=== PATIENT | female | born 1950 | race Caucasian/White ===

== ENCOUNTER 2016-08-05 14:54 | Emergency (ER) | payer OTHER ==
[2016-08-05 14:55] VITALS: BMI 25.9
[2016-08-05 15:27] VITALS: RESP 20
--- NOTE | 2016-08-05 16:10 | C.PDOC ---
History Of Present Illness A 66 year old female presents to the emergency room for the evaluation of right elbow pain for 2 weeks. Patient notes that the pain is localized and worst with elbow movement. Patient admits, sustained some injury 2 weeks ago. Patient notes was seen by PMD and ref. to F/u with specialist and the medications given for pain have not resulted in any improvement. Patient denies any obvious deformity to Right arm, swelling, numbness, weakness, sensory or vascular deficits to Right arm, denies CP, SOB, dyspnea, diaphoresis. Ambulate to Ed for evaluation, not in any apparent distress. Time Seen by Provider: 08/05/16 15:35 Chief Complaint (Nursing): Upper Extremity Problem/Injury History Per: Patient History/Exam Limitations: no limitations Onset/Duration Of Symptoms: Other (2 weeks) Current Symptoms Are (Timing): Still Present Quality: "Pain" Severity: Mild Exacerbating Factor(s): Movement Recent travel outside of the [place]: No Past Medical History Reviewed: Historical Data, Nursing Documentation, Vital Signs Vital Signs: Last Vital Signs Temp 97.9 F 08/05/16 15:26 Pulse 78 08/05/16 15:26 Resp 20 08/05/16 15:26 BP 135/89 08/05/16 15:26 Pulse Ox 98 08/05/16 17:08 - Medical History PMH: Arthritis, Asthma, Diabetes, HTN, Hypercholesterolemia, Osteoporosis Denies: Chronic Kidney Disease Family History: States: Unknown Family Hx - Social History Hx Tobacco Use: Yes Hx Alcohol Use: No Hx Substance Use: No - Immunization History Hx Tetanus Toxoid Vaccination: No Hx Influenza Vaccination: No Hx Pneumococcal Vaccination: No Review Of Systems Except As Marked, All Systems Reviewed And Found Negative. Constitutional: Negative for: Fever, Sweats Gastrointestinal: Negative for: Nausea, Vomiting, Diarrhea Musculoskeletal: Positive for: Other (Right elbow pain) Neurological: Negative for: Weakness, Numbness Physical Exam - Physical Exam Appears: Well, Non-toxic Skin: Warm, Dry, No Rash, No Ecchymosis, Other (Wart attached to right elbow) Extremity: Normal ROM, Tenderness (Diffuse right elbow tenderness with a wart attached. No obvious deformity or swelling.), No Deformity, No Swelling Neurological/Psych: Oriented x3, Normal Speech, Normal Cognition, Normal Motor, Normal Sensation, Normal Reflexes ED Course And Treatment O2 Sat by Pulse Oximetry: 98 Pulse Ox Interpretation: Normal - Other Rad Right elbow X-Ray: Interpreted by Me Interpretation: (+)proximal radial head fx Progress Note: On re-eavl, pt is afebrile, hemodynamicaly stable. non-toxic. Right UE: exam c/w elbow arthralgia, mild discomfort on flexion/extension. No neurovascular deficits. Xray (+) proximal radial fx. SPlint applied, sling. Analgesics. pt ref. to f/u with ortho on 2-3 days for re-eval. Orthopedic Time Performed: 16:20 Time Out: Side verified, Site verified, Patient ID confirmed Procedure: Splint Type: Long Other:: arm Location: Right Consent obtained: Verbal Performed by: Mid-level Provider Diagnosis: Fracture Type: Closed Location: Left, Proximal Bone: Radius Disposition Counseled Patient/Family Regarding: Studies Performed, Diagnosis, Need For Followup, Rx Given - Disposition Referrals: Jose Dejesus III, MD [Staff Provider] - [facility] [Outside] Disposition: HOME/ ROUTINE Disposition Time: 16:20 Condition: STABLE Additional Instructions: Splint Sling take pain medication as prescribed Follow up with Orthopedist in 2-3 days for re-evaluation. Return to ED if any worsening or new changes. Prescriptions: traMADol [Ultram] 50 mg PO TID #7 tab Instructions: Elbow Fracture in Adults (ED) Print Language: MALDIVIAN - Clinical Impression Clinical Impression: Elbow fracture, right - Scribe Statement The provider has reviewed the documentation as recorded by the Scribdax Brown All medical record entries made by the Scribe were at my direction and personally dictated by me. I have reviewed the chart and agree that the record accurately reflects my personal performance of the history, physical exam, medical decision making, and the department course for this patient. I have also personally directed, reviewed, and agree with the discharge instructions and disposition.
[2016-08-05 17:50] VITALS: BP 142/85; PULSE 86; TEMP 98.7; O2SAT 96
--- NOTE | 2016-08-06 11:18 | RAD ---
PROCEDURE: Radiographs of the right elbow. HISTORY: pain, injury COMPARISON: No prior. FINDINGS: BONES: A radial neck complete fracture without gross displacement is noted. Some minimal impaction on the lateral view is questioned. Tiny chip 2 mm fracture for is seen distal to the fracture line volar aspect Coronoid process osseous hypertrophy JOINTS: osteoarthritis. SOFT TISSUES: Soft tissue swelling JOINT EFFUSION: Yes OTHER FINDINGS: None. IMPRESSION: Radial head -neck fracture. . The fracture may be subacute. Correlate clinically. Minimal impaction possible. No greater displacement suggested. Coronoid spurring -osteoarthrosis Elbow joint effusion
== END 2016-08-05 17:50 | disposition home or self-care (01) ==
LOC: C.ER 14:54
DX: S52.121A Displaced fracture of head of right radius, initial encounter for closed fracture (principal); X58.XXXA Exposure to other specified factors, initial encounter; Y93.9 Activity, unspecified; Y92.9 Unspecified place or not applicable

== ENCOUNTER 2016-11-30 20:56 | Observation (INO) | payer OTHER ==
--- NOTE | 2016-11-30 20:58 | C.PDOC ---
History Of Present Illness Patient complaining of chest pain which started on Friday. Speaking in complete sentences. Dull aching chest discomfort, non radiating. No fever, chills, nausea or vomiting. Time Seen by Provider: 11/30/16 20:57 History Per: Patient History/Exam Limitations: no limitations Onset/Duration Of Symptoms: Days (3) Current Symptoms Are (Timing): Still Present Severity: Moderate Pain Scale Rating Of: 4 Quality: Dull Associated Symptoms: denies: Nausea, Dyspnea, Diaphoresis Modifying Factors: None Exacerbating Factors: None Alleviating Factors: None Recent travel outside of the [place]: No Additional History Per: Patient Past Medical History Reviewed: Historical Data, Nursing Documentation, Vital Signs Vital Signs: Last Vital Signs Temp 98.1 F 11/30/16 21:11 Pulse 78 11/30/16 21:47 Resp 16 11/30/16 21:47 BP 117/70 11/30/16 21:47 Pulse Ox 100 11/30/16 21:47 - Medical History PMH: Arthritis, Asthma, Diabetes, HTN, Hypercholesterolemia, Osteoporosis Denies: Chronic Kidney Disease Family History: States: No Known Family Hx - Social History Hx Tobacco Use: Yes Hx Alcohol Use: No Hx Substance Use: No - Immunization History Hx Tetanus Toxoid Vaccination: No Hx Influenza Vaccination: No Hx Pneumococcal Vaccination: No Review Of Systems Constitutional: Negative for: Fever, Chills Eyes: Negative for: Redness ENT: Negative for: Throat Pain Cardiovascular: Positive for: Chest Pain Respiratory: Negative for: Shortness of Breath Gastrointestinal: Negative for: Nausea, Vomiting, Abdominal Pain Genitourinary: Negative for: Dysuria Musculoskeletal: Negative for: Back Pain Skin: Negative for: Rash, Lesions Neurological: Negative for: Weakness Psych: Negative for: Anxiety Physical Exam - Physical Exam Appears: Non-toxic Skin: Warm, Dry Head: Normacephalic Eye(s): bilateral: Normal Inspection Oral Mucosa: Moist Neck: Supple Chest: Symmetrical Cardiovascular: Rhythm Regular Respiratory: No Rales, No Rhonchi, No Wheezing Gastrointestinal/Abdominal: Soft, No Tenderness, No Distention Back: No CVA Tenderness Extremity: No Tenderness Extremity: Bilateral: Atraumatic, Normal Color And Temperature Pulses: Left Dorsalis Pedis: Normal, Right Dorsalis Pedis: Normal Neurological/Psych: Oriented x3, Normal Speech, Normal Cognition Gait: Steady ED Course And Treatment - Laboratory Results Result Diagrams: 11/30/16 21:28 11/30/16 21:28 ECG: Interpreted By Me, Viewed By Me ECG Rhythm: Sinus Rhythm (80), Nonspecific Changes (unchanged from 06/20/14) O2 Sat by Pulse Oximetry: 99 Pulse Ox Interpretation: Normal - Radiology CXR: Interpreted by Me, Viewed By Me CXR Interpretation: No: Infiltrates, Fracture, Pnemothorax Progress Note: cardiac work up, asa, Disposition Discussed With Dr.: Norman David Comment: accepted the pt on his service and took over the care at 10:38PM Doctor Will See Patient In The: Hospital Counseled Patient/Family Regarding: Studies Performed, Diagnosis - Disposition Disposition: HOSPITALIZED Disposition Time: 20:58 Condition: FAIR - POA Present On Arrival: Poor Glycemic Control - Clinical Impression Clinical Impression: Chest pain Decision To Admit - Pt Status Changed To: Hospital Disposition Of: Inpatient - Admit Certification Admit to Inpatient:: After my assessment, the patient will require hospitalization for at least two midnights. This is because of the severity of symptoms shown, intensity of services needed, and/or the medical risk in this patient being treated as an outpatient. - InPatient: Physician Admission Certification: I certify that this patient requires 2 or more midnights of care for the following reason:: After my assessment, the patient will require hospitalization for at least two midnights. This is because of the severity of symptoms shown, intensity of services needed, and/or the medical risk in this patient being treated as an outpatient. - . Bed Request Type: Telemetry Admitting Physician: Norman David Patient Diagnosis: Chest pain
[2016-11-30 21:00] VITALS: BMI 26.7
[2016-11-30] MEDS ORDERED: Aspirin 325 mg EC Tablets PO STA (21:00)
[2016-11-30 21:32] LABS: BASO # 0.1 K/uL (0.0-0.2); BASO % 1.3 % (0.0-2.0); EOS # 0.3 K/uL (0.0-0.7); EOS % 3.2 % (0.0-4.0); HEMATOCRIT 37.6 % (34.0-47.0); LYMPH # 3.3 K/uL (1.0-4.3); LYMPH % 40.9 % (20.0-40.0); MEAN CORPUSCULAR HEMOGLOBIN 32.4 pg (27.0-31.0); MEAN CORPUSCULAR HGB CONC 34.5 g/dL (33.0-37.0); MEAN PLATELET VOLUME 8.5 fL (7.2-11.7); MONO # 0.9 K/uL (0.0-0.8); MONO % 11.5 % (0.0-10.0); NRBC % 0.1 % (0.0-2.0); RED CELL DISTRIBUTION WIDTH 14.2 % (11.5-14.5); WHITE BLOOD COUNT 8.1 K/uL (4.8-10.8)
[2016-11-30 21:40] LABS: RBC URINE 1 /hpf (0-3); URINE BILIRUBIN NEGATIVE (NEGATIVE); URINE BLOOD 1+ (NEGATIVE); URINE COLOR Straw (YELLOW); URINE GLUCOSE (UA) NORMAL (Normal); URINE KETONE NEGATIVE (NEGATIVE); URINE LEUKOCYTE ESTERASE 1+ Leu/uL (Negative); URINE PROTEIN NEGATIVE (NEGATIVE); URINE UROBILINOGEN NORMAL mg/dL (0.2-1.0); WBC URINE 4 /hpf (0-5)
[2016-11-30 21:40] LABS: CHLORIDE 101 mmol/L (98-107)
[2016-11-30 21:41] LABS: POTASSIUM 3.6 mmol/L (3.6-5.2); SODIUM 140 mmol/L (132-148)
[2016-11-30 21:43] LABS: CARBON DIOXIDE 24 mmol/L (22-30); GFR AFRICAN-AMERICAN > 60
[2016-11-30 21:44] LABS: ALKALINE PHOSPHATASE 75 U/L (38-126); ALT/SGPT 41 U/L (9-52); AST/SGOT 31 U/L (14-36); BILIRUBIN,TOTAL 0.4 mg/dL (0.2-1.3); BLOOD UREA NITROGEN 17 mg/dL (7-17); CALCIUM 9.3 mg/dl (8.6-10.4); GLUCOSE,RANDOM 173 mg/dL (65-105); TOTAL PROTEIN 7.2 g/dL (6.3-8.3)
[2016-11-30] MEDS ORDERED: Aspirin 325 mg EC Tablets PO ONE (21:51)
[2016-12-01] MEDS ORDERED: Nitroglycerin 2% Ointment Foilpak UD TOP ONE (00:09)
[2016-12-01] MEDS: Nitroglycerin 2% Ointment Foilpak UD TOP SCH ×4 (00:09→17:59)
[2016-12-01] MEDS ORDERED: Oxycodone/Acetaminophen 5/325 mg Tab PO ONE (04:07)
[2016-12-01] MEDS: (Novolin R) Insulin Human Regular 100 units/ml vial SC SCH ×4 (07:52→21:36)
[2016-12-01] MEDS: Aspirin 325 mg EC Tablets PO SCH (09:40)
[2016-12-01] MEDS: Enoxaparin 30 mg Syringe SC SCH ×2 (09:41→21:36)
--- NOTE | 2016-12-01 12:57 | RAD ---
PROCEDURE: CHEST RADIOGRAPH, 1 VIEW. Technique: Portable study performed @ 21:05. HISTORY: chest pain COMPARISON: 06/20/2014 FINDINGS: LUNGS: Clear. PLEURA: No pneumothorax or pleural fluid seen. CARDIOVASCULAR: No radiographic findings to suggest acute or significant cardiovascular disease. OSSEOUS STRUCTURES: No significant abnormalities. VISUALIZED UPPER ABDOMEN: Normal. OTHER FINDINGS: None. IMPRESSION: No active disease. No acute/significant interval changes.
--- NOTE | 2016-12-01 14:24 | CP.PCM.HP ---
History of Present Illness - History of Present Illness History of Present Illness: COMPREHENSIVE HISTORY & PHYSICAL EXAM HPI ADMITTED FROM ER WITH 3 DAYS OF INTERMITTENT CP, NON RADIATION ,NOT A/W N/ VOMITING . FIRST EPISODE OF CP EKG NO ACUTE CHANGES PAST HIST. HTN AND T2DM PERSONAL HIST: Smoking. N Alcohol. N Allergy N Travel_- . FAMILY HIST : ROS : Constitutional: Negative for weight change, chills, night sweats, fatigue and usage of assist device. Eyes: Negative for redness, swelling, itching, discharge, vision changes, blurry vision, double vision, glaucoma, cataracts, Ears: Negative for hearing loss, ringing, , tinnitus, vertigo Nose: Negative for rhinorrhea, stuffiness, sniffing, itching, postnasal drip, discoloration, nasal congestion and epistaxis. Throat: Negative for throat clearing, sore throat, hoarseness, difficulty swallowing and difficulty speaking. Respiratory: Negative for cough, , sputum production, chest tightness, wheezing, pleuritic chest pain ,daytime somnolence, chronic cough, hemoptysis, snoring at night, Cardiovascular: POS for chest pain, palpitations, orthopnea NO , PND, Edema of legs, leg cramps, angina, claudication, , irregular heartbeat, Neurology: Negative for irritability, muscle weakness, numbness and tingling, seizures, tremors, migraines, slurred speech, syncope, memory loss, mood changes , recurrent headaches Gastrointestinal: Negative for difficulty swallowing, diarrhea, constipation, black stools, rectal bleeding, nausea, flatulence, reflux, poor appetite, changes in bowel habits, abdominal pain Genitourinary: Negative for frequent urination, hematuria, discharge, incontinence, urinary retention, frequent UTI, Psychiatric: Negative for depression, anxiety/panic, suicidal tendencies, Musculoskeletal: Negative for swollen joints, back pain, , neck pain, morning stiffness of joints, . Skin: Negative for rash, ulcers, itching, dry skin and pigmented lesions. P/E: Constitutional: Appears stated age and in no apparent distress. Head: Normocephalic. Ears: External ear canals patent without inflammation. Tympanic membranes intact with normal light reflex and landmark. Eyes: Pupils are central, bilaterally equal, symmetrical and reacts to light with normal movements and no icterus or pallor. Nose: External nares are patent. Mucosa is pink Mouth-Throat: Good general appearance and condition. No post-pharyngeal/oropharyngeal erythema and tonsillar hypertrophy. Good dental hygiene. Neck-Lymphatic: Neck is supple with normal ROM, no thyromegaly, lymph nodes or masses. JVD is normal with no carotid bruit. Lungs: Clear to percussion and auscultation with bilateral normal air entry. Cardiovascular: S1 and S2 are normal with no murmurs, gallops and rub. GI Exam: No hepatomegaly. Abdomen is soft and non-tender. No Organomegaly , masses or hernias are evident and bowel sounds are normal and active. Neurology: Higher function and all cranial nerves intact, with no gross motor or sensory deficit. Superficial and deep reflexes are normal with downwards planters. No cerebellar deficit with normal gait. Musculoskeletal: No tender spots with normal curvature of the spine with no swelling or restricted ROM of the small and large joints. Extremities: Homans sign absent. Intact pulses with no pitting edema, calf tenderness or skin color changes. Skin: No rash, eruptions or abnormal skin pigmentation LAB/RADIOLOGY: ASSESMENT : UNSTABLE ANGINA T2DM HTN PLAN: W/U FOR CAD IN THIS DM PT Present on Admission - Present on Admission Any Indicators Present on Admission: No Past Patient History - Infectious Disease Hx of Infectious Diseases: None - Past Medical History & Family History Past Medical History?: Yes - Past Social History Smoking Status: Never Smoked - CARDIAC Hx Cardiac Disorders: Yes Hx Angina: No Hx Circulatory Problems: Yes Hx Hypercholesterolemia: No Hx Hypertension: Yes - PULMONARY Hx Respiratory Disorders: Yes Hx Asthma: Yes Hx Bronchitis: Yes Hx Chronic Obstructive Pulmonary Disease (COPD): Yes Hx Pneumonia: Yes - NEUROLOGICAL Hx Neurological Disorder: No - HEENT Hx HEENT Problems: Yes Hx Cataracts: Yes Other/Comment: Cornea - RENAL Hx Chronic Kidney Disease: No - ENDOCRINE/METABOLIC Hx Endocrine Disorders: Yes Hx Diabetes Mellitus Type 2: Yes - HEMATOLOGICAL/ONCOLOGICAL Hx Blood Disorders: No - INTEGUMENTARY Hx Dermatological Problems: No - MUSCULOSKELETAL/RHEUMATOLOGICAL Hx Musculoskeletal Disorders: Yes Hx Arthritis: Yes Hx Back Pain: Yes Hx Falls: Yes Hx Fractures: Yes Hx Herniated Disk: Yes Hx Osteoporosis: Yes - GASTROINTESTINAL Hx Gastrointestinal Disorders: No - GENITOURINARY/GYNECOLOGICAL Hx Genitourinary Disorders: No - PSYCHIATRIC Hx Psychophysiologic Disorder: No Hx Substance Use: No - SURGICAL HISTORY Hx Surgeries: Yes Hx Cataract Extraction: Yes Hx Section: Yes Hx Eye Surgery: Yes - ANESTHESIA Hx Anesthesia: Yes Hx Anesthesia Reactions: No Meds Allergies/Adverse Reactions: Allergies Allergy/AdvReac Type Severity Reaction Status Date / Time No Known Allergies Allergy Verified 01/05/16 13:48 Results - Vital Signs Recent Vital Signs: Last Vital Signs Temp 98 F 12/01/16 07:05 Pulse 73 12/01/16 08:00 Resp 18 12/01/16 07:05 BP 115/72 12/01/16 07:05 Pulse Ox 100 12/01/16 07:05 - Labs Result Diagrams: 11/30/16 21:28 11/30/16 21:28 Labs: Laboratory Results - last 24 hr 12/01/16 12/01/16 12/01/16 06:01 06:23 11:30 POC Glucose (mg/dL) 140 H 119 H Total Creatine Kinase 64 CK-MB (Mass) 0.46 Troponin I, Quant < 0.0120
[2016-12-01 15:49] VITALS: O2SAT 99
[2016-12-02] MEDS: (Novolin R) Insulin Human Regular 100 units/ml vial SC SCH ×2 (07:21→13:52)
[2016-12-02] MEDS: Aspirin 325 mg EC Tablets PO SCH (09:42)
[2016-12-02] MEDS ORDERED: Enoxaparin 30 mg Syringe SC SCH (10:00)
[2016-12-02] MEDS: Nitroglycerin 2% Ointment Foilpak UD TOP SCH (13:52)
--- NOTE | 2016-12-02 14:00 | CP.PCM.DIS ---
Provider - Provider Date of Admission: 11/30/16 22:39 Attending physician: Norman David MD Time Spent in preparation of Discharge (in minutes): 30 Hospital Course - Lab Results Lab Results: Most Recent Lab Values WBC 8.1 K/uL (4.8-10.8) 11/30/16 21: RBC 4.00 Mil/uL (3.80-5.20) 11/30/16 21: Hgb 13.0 g/dL (11.0-16.0) 11/30/16 21: Hct 37.6 % (34.0-47.0) 11/30/16 21: MCV 94.0 fL (81.0-99.0) 11/30/16 21: MCH 32.4 pg (27.0-31.0) H 11/30/16 21: MCHC 34.5 g/dL (33.0-37.0) 11/30/16 21: RDW 14.2 % (11.5-14.5) 11/30/16 21: Plt Count 264 K/uL (130-400) 11/30/16 21:28 MPV 8.5 fL (7.2-11.7) 11/30/16 21: Neut % (Auto) 43.1 % (50.0-75.0) L 11/30/16 21: Lymph % (Auto) 40.9 % (20.0-40.0) H 11/30/16 21: [place] % (Auto) 11.5 % (0.0-10.0) H 11/30/16 21:28 Eos % (Auto) 3.2 % (0.0-4.0) 11/30/16 21: Baso % (Auto) 1.3 % (0.0-2.0) 11/30/16 21: Neut # 3.5 K/uL (1.8-7.0) 11/30/16 21: Lymph # 3.3 K/uL (1.0-4.3) 11/30/16 21:28 [place] # 0.9 K/uL (0.0-0.8) H 11/30/16 21:28 Eos # 0.3 K/uL (0.0-0.7) 11/30/16 21:28 Baso # 0.1 K/uL (0.0-0.2) 11/30/16 21:28 PT 11.3 SECONDS (9.7-12.2) 11/30/16 21:28 INR 1.0 11/30/16 21:28 APTT 38 SECONDS (21-34) H 11/30/16 21:28 Sodium 140 mmol/L (132-148) 11/30/16 21:28 Potassium 3.6 mmol/L (3.6-5.2) 11/30/16 21:28 Chloride 101 mmol/L (98-107) 11/30/16 21:28 Carbon Dioxide 24 mmol/L (22-30) 11/30/16 21:28 Anion Gap 18 (10-20) 11/30/16 21:28 BUN 17 mg/dL (7-17) 11/30/16 21:28 Creatinine 0.8 MG/DL (0.7-1.2) 11/30/16 21:28 Est GFR ( Amer) > 60 11/30/16 21:28 Est GFR (Non-Af Amer) > 60 11/30/16 21:28 POC Glucose (mg/dL) 75 mg/dL (65-110) 12/02/16 11:21 Random Glucose 173 mg/dL (65-105) H 11/30/16 21:28 Calcium 9.3 mg/dl (8.6-10.4) 11/30/16 21:28 Total Bilirubin 0.4 mg/dL (0.2-1.3) 11/30/16 21:28 AST 31 U/L (14-36) 11/30/16 21:28 ALT 41 U/L (9-52) 11/30/16 21:28 Alkaline Phosphatase 75 U/L (38-126) 11/30/16 21:28 Total Creatine Kinase 64 U/L (30-135) 12/01/16 06:23 CK-MB (Mass) 0.46 ng/mL (0.0-3.38) 12/01/16 06:23 Troponin I < 0.0120 ng/mL (0.00-0.120) 11/30/16 21:28 Troponin I, Quant < 0.0120 ng/mL (0.00-0.120) 12/01/16 06:23 NT-Pro-B Natriuret Pep 26.8 pg/mL (0-900) 11/30/16 21:28 Total Protein 7.2 g/dL (6.3-8.3) 11/30/16 21: Albumin 3.7 g/dL (3.5-5.0) 11/30/16 21: Globulin 3.5 gm/dL (2.2-3.9) 11/30/16 21: Albumin/Globulin Ratio 1.0 (1.0-2.1) 11/30/16 21: Urine Color Straw (YELLOW) 11/30/16 21: Urine Clarity Clear (Clear) 11/30/16 21: Urine pH 6.0 (5.0-8.0) 11/30/16 21:30 Ur Specific [place] 1.011 (1.003-1.030) 11/30/16 21:30 Urine Protein Negative mg/dL (NEGATIVE) 11/30/16 21:30 Urine Glucose (UA) Normal mg/dL (Normal) 11/30/16 21:30 Urine Ketones Negative mg/dL (NEGATIVE) 11/30/16 21:30 Urine Blood 1+ (NEGATIVE) H 11/30/16 21:30 Urine Nitrate Negative (NEGATIVE) 11/30/16 21:30 Urine Bilirubin Negative (NEGATIVE) 11/30/16 21:30 Urine Urobilinogen Normal mg/dL (0.2-1.0) 11/30/16 21:30 Ur Leukocyte Esterase 1+ Dorothea/uL (Negative) H 11/30/16 21:30 Urine WBC (Auto) 4 /hpf (0-5) 11/30/16 21:30 Urine RBC (Auto) 1 /hpf (0-3) 11/30/16 21:30 Ur Squamous Epith Cells 1 /hpf (0-5) 11/30/16 21:30 - Hospital Course Hospital Course: ADMITTED FROM ER WITH 3 DAYS OF INTERMITTENT CP, NON RADIATION ,NOT A/W N/ VOMITING . FIRST EPISODE OF CP EKG NO ACUTE CHANGES PAST HIST. HTN AND T2DM SERIAL TNI WERE NEG NO ACUTE CHANGES IN EKG NO FURTHER CP WILL OBTAIN POT PT CARDIAC W/U Discharge Plan - Follow Up Plan Condition: FAIR Disposition: HOME/ ROUTINE
[2016-12-02 15:51] VITALS: BP 136/86; PULSE 88; RESP 20; TEMP 98.2
--- NOTE | 2016-12-02 16:09 | CP.PCM.PN ---
Subjective - Date & Time of Evaluation Date of Evaluation: 12/02/16 Time of Evaluation: 16:09 - Subjective Subjective: PT SEEN BY DR. TORIBIO DURING ROUNDS AND CLEARED FOR D/C HOME WITH RX FOR ASA. PT TO F/U WITH DR. TORIBIO IN THE OFFICE IN 1 WEEK. NO FURTHER ORDERS. Objective - Vital Signs/Intake and Output Vital Signs (last 24 hours): Temp Pulse Resp BP Pulse Ox 98.2 F 88 20 136/86 99 12/02/16 15:05 12/02/16 15:05 12/02/16 15:05 12/02/16 15:05 12/02/16 15:05 - Medications Medications: Current Medications Amlodipine Besylate (Norvasc) 10 mg PO DAILY [facility] Last Admin: 12/02/16 09:35 Dose: Not Given Aspirin (Ecotrin) 325 mg PO DAILY [facility] Last Admin: 12/02/16 09:42 Dose: 325 mg Enoxaparin Sodium (Lovenox) 30 mg SC Q12 [facility] Last Admin: 12/02/16 09:43 Dose: 30 mg Hydrochlorothiazide (Hydrodiuril) 25 mg PO DAILY [facility] Last Admin: 12/02/16 09:42 Dose: 25 mg Insulin Human Regular (Novolin R) 0 unit SC ACHS [facility] PRN Reason: Protocol Last Admin: 12/02/16 13:52 Dose: Not Given Losartan Potassium (Cozaar) 100 mg PO DAILY [facility] Last Admin: 12/02/16 09:35 Dose: Not Given Metformin HCl (Glucophage) 500 mg PO DAILY [facility] Last Admin: 12/02/16 09:42 Dose: 500 mg Nitroglycerin (Nitro-Bid 2% Oint) 0.5 ea TOP Q6 [facility] Last Admin: 12/02/16 13:52 Dose: Not Given Pneumococcal Polyvalent Vaccine (Pneumovax 23 Vaccine) 0.5 ml IM .ONCE ONE Stop: 12/03/16 14:01 - Labs Labs: PT 11.3 SECONDS (9.7-12.2) 11/30/16 21:28 INR 1.0 11/30/16 21:28 APTT 38 SECONDS (21-34) H 11/30/16 21:28
[2016-12-03] MEDS ORDERED: Pneumococcal 23-Valent Vaccine IM ONE (14:00)
--- NOTE | 2016-12-10 20:07 | CARD ---
APPROVED REPORT EKG Measurement Heart [id number] <Conclusion> Normal sinus rhythm Normal ECG
--- NOTE | 2016-12-11 14:34 | CARD ---
APPROVED REPORT EKG Measurement Heart [id number] <Conclusion> Normal sinus rhythm Normal ECG
== END 2016-12-02 16:45 | disposition home or self-care (01) ==
LOC: C.ER 20:56 → C.9E 22:39 → C.6T 22:39
PROVIDERS: ADMIT Internal Medicine Cardiovascular Disease; ATTEND Internal Medicine Cardiovascular Disease
DX: R07.89 Other chest pain (principal); E11.9 Type 2 diabetes mellitus without complications; I10 Essential (primary) hypertension; E78.00 Pure hypercholesterolemia, unspecified; J44.9 Chronic obstructive pulmonary disease, unspecified; M81.0 Age-related osteoporosis without current pathological fracture; Z87.01 Personal history of pneumonia (recurrent); Z72.0 Tobacco use
CPT/HCPCS: 36415; 71010; 80053; 81001; 82948; 83880; 84484; 85025; 85610; 85730; 96374; 99285; G0378; J1650; J2270

== ENCOUNTER 2018-09-08 10:34 | Emergency (ER) | payer OTHER ==
[2018-09-08 10:34] VITALS: BMI 26.7
[2018-09-08 10:44] VITALS: RESP 20; TEMP 98.2
--- NOTE | 2018-09-08 12:38 | C.PDOC ---
History Of Present Illness 68 year old female presents to the ED for evaluation of right ring finger pain that occurred 1 day ago; patient tripped and was falling and hit her hand against something trying to avoid wall. . Patient denies taking any medication for pain. She denies any numbness, weakness, or tingling denies hitting head, loc and any other injuries. Time Seen by Provider: 09/08/18 11:21 Chief Complaint (Nursing): Finger,Hand,&Wrist History Per: Patient History/Exam Limitations: no limitations Onset/Duration Of Symptoms: Days (1) Current Symptoms Are (Timing): Still Present Quality: "Pain" Recent travel outside of the [place]: No Additional History Per: Patient Past Medical History Reviewed: Historical Data, Nursing Documentation, Vital Signs Vital Signs: Last Vital Signs Temp 98.2 F 09/08/18 10:37 Pulse 92 H 09/08/18 10:37 Resp 20 09/08/18 10:37 BP 138/84 09/08/18 10:37 Pulse Ox 97 09/08/18 10:37 Primary Care Provider: Flavio Feliciano - Medical History PMH: Arthritis, Asthma, Bronchitis, COPD, Diabetes, Fractures, HTN, Osteoporosis, Pneumonia Denies: Hypercholesterolemia, Chronic Kidney Disease Surgical History: No Surg Hx Family History: States: Unknown Family Hx - Social History Hx Tobacco Use: Yes Hx Alcohol Use: No Hx Substance Use: No - Immunization History Hx Tetanus Toxoid Vaccination: No Hx Influenza Vaccination: No Hx Pneumococcal Vaccination: No Review Of Systems Constitutional: Negative for: Fever, Chills Cardiovascular: Negative for: Chest Pain Musculoskeletal: Positive for: Hand Pain (right ring finger pain ). Negative for: Neck Pain, Back Pain Skin: Negative for: Bruising Neurological: Negative for: Weakness, Numbness, Other (tingling ) Physical Exam - Physical Exam Appears: Non-toxic, No Acute Distress Skin: Warm, Dry Head: Atraumatic, Normacephalic Eye(s): bilateral: Normal Inspection Extremity: Normal ROM, Tenderness (MCP phalangeal joint right 4th finger. swelling and tenderness to dip. ), Swelling (distal phalanx right 4th finger), Other (from all other fingers and joint right upper extremity) Pulses: Left Radial: Normal, Right Radial: Normal Neurological/Psych: Oriented x3, Normal Speech, Normal Cognition, Normal Motor, Normal Sensation, Normal Reflexes ED Course And Treatment O2 Sat by Pulse Oximetry: 97 (on RA) Pulse Ox Interpretation: Normal Medical Decision Making Medical Decision Making: Plan: Xray Rt Hand Tylenol 650mg PO Xray reviewed by me. Patient has a possible tiny chip fracture on dorsal surface distal phalanx. Splint applied and patient discharged home. Disposition Counseled Patient/Family Regarding: Studies Performed, Diagnosis, Need For Followup, Rx Given - Disposition Referrals: Flavio Feliciano MD [Staff Provider] - Yakov Mark MD [Staff Provider] - Disposition: HOME/ ROUTINE Disposition Time: 12:37 Condition: GOOD Additional Instructions: Use frula para mayor comodidad. Tylenol para el dolor. Compresas fisher Lora un seguimiento con mejia mdico de atencin primaria y con el Dr. Mark. Wear splint for comfort. Tylenol for pain. Cold compresses. Follow up with your primary care doctor and with Dr Mark. Prescriptions: Acetaminophen [Tylenol 325mg tab] 650 mg PO Q4 #50 tab Instructions: Finger Sprain (DC), Finger Fracture (DC) Forms: Gen Discharge Inst Pakistani, Vusay (Pakistani) Print Language: ENGLISH - Clinical Impression Clinical Impression: Fracture of finger, distal phalanx, right, closed, Sprain of right ring finger - PA / SILO OPERATOR / Resident Statement MD/DO has reviewed & agrees with the documentation as recorded. - Scribe Statement The provider has reviewed the documentation as recorded by the Martita Figueroa All medical record entries made by the Scribe were at my direction and personally dictated by me. I have reviewed the chart and agree that the record accurately reflects my personal performance of the history, physical exam, medical decision making, and the department course for this patient. I have also personally directed, reviewed, and agree with the discharge instructions and disposition.
[2018-09-08 12:43] VITALS: BP 137/90; PULSE 72
--- NOTE | 2018-09-08 12:52 | RAD ---
PROCEDURE: Right Hand Radiographs. HISTORY: 4th finger pain mtp COMPARISON: None. TECHNIQUE: 3 views obtained. FINDINGS: BONES: Normal. No fracture. JOINTS: Arthrosis mainly 4th and 5th DIP joints. No gross erosions seen. SOFT TISSUES: Normal. OTHER FINDINGS: None. IMPRESSION: Arthrosis.
[2018-09-08 13:04] VITALS: O2SAT 97
== END 2018-09-08 12:48 | disposition home or self-care (01) ==
LOC: C.ER 10:34
DX: S62.634A Displaced fracture of distal phalanx of right ring finger, initial encounter for closed fracture (principal); S63.614A Unspecified sprain of right ring finger, initial encounter; W01.0XXA Fall on same level from slipping, tripping and stumbling without subsequent striking against object, initial encounter